=== PATIENT | male | born 1970 | race Caucasian/White ===

== ENCOUNTER 2021-03-25 17:51 | Emergency (ER) | payer SELFPAY ==
[~2021-03-25] VITALS: Ht 172.7 cm; Wt 74.8 kg
[2021-03-25] MEDS ORDERED: IBUPROFEN 600 MG TAB PO ONE (18:25)
[2021-03-25 18:26] VITALS: BP 157/97
--- NOTE | 2021-03-25 18:29 | NUR ---
PT AMB TO BED 11.
--- NOTE | 2021-03-25 18:42 | NUR ---
PT LAC ON RIGHT MIDDLE FINGER IRRIGATED WITH NORMAL SALINE
[2021-03-25] MEDS ORDERED: IBUP-2213 PO (18:54)
--- NOTE | 2021-03-25 19:26 | NUR ---
ATTEMPTED TO CALL PT TO PROVIDE DISCHARGE PAPERWORK AND NO ANSWER
--- NOTE | 2021-03-25 19:29 | NUR ---
PT LEFT WITHOUT PROPER DISCHARGE AND PAPERWORK
== END 2021-03-25 19:29 | disposition home or self-care (01) ==
LOC: MED 17:51
DX: S61.212A Laceration without foreign body of right middle finger without damage to nail, initial encounter (principal); I10 Essential (primary) hypertension; F17.210 Nicotine dependence, cigarettes, uncomplicated; Z79.2 Long term (current) use of antibiotics; W26.8XXA Contact with other sharp object(s), not elsewhere classified, initial encounter; Y92.009 Unspecified place in unspecified non-institutional (private) residence as the place of occurrence of the external cause; Y93.89 Activity, other specified; Y99.8 Other external cause status
CPT/HCPCS: 99282

== ENCOUNTER 2023-10-06 14:22 | Emergency (ER) | payer SELFPAY ==
[~2023-10-06] VITALS: Ht 172.7 cm; Wt 77.1 kg
[~2023-10-06 14:22] MED LIST: IBUP-2213 PO
[2023-10-06 14:33] VITALS: BP 150/92; PULSE 74; RESP 18; TEMP 98.2; O2SAT 99
[2023-10-06] MEDS: KETOROLAC 60 MG/2 ML VIAL IM ONE (15:32)
[2023-10-06] MEDS ORDERED: IBUP-1842 PO (15:46)
== END 2023-10-06 16:08 | disposition home or self-care (01) ==
LOC: MED 14:22
DX: S93.692A Other sprain of left foot, initial encounter (principal); Z79.899 Other long term (current) drug therapy; X58.XXXA Exposure to other specified factors, initial encounter; Y93.89 Activity, other specified; Y92.89 Other specified places as the place of occurrence of the external cause; Y99.8 Other external cause status
CPT/HCPCS: 73630; 96372; 99283; J1885